=== PATIENT | female | born 1980 | race Caucasian/White ===

== ENCOUNTER 2021-04-22 09:54 | Emergency (ER) | payer OTHER ==
[~2021-04-22] VITALS: Ht 160 cm; Wt 68.0 kg
[~2021-04-22 09:54] MED LIST: COLACE 100 MG100 MG PO; NORCO 5-325 TA1 EACH PO; ONDANSETRON HCL4 M2 PO; TRAMADOL 50 MG50 MG PO; UNICOMPLEX M TA1 TA1; VITAMIN D1000 UNI1; ZANTAC 150MG T150 MG PO; ZOFRAN4 MG PO
[2021-04-22 10:09] VITALS: BP 110/72
[2021-04-22] MEDS ORDERED: NORCO5 PO (11:21)
== END 2021-04-22 11:22 | disposition home or self-care (01) ==
LOC: ER 09:54
DX: S92.911A Unspecified fracture of right toe(s), initial encounter for closed fracture (principal); M79.671 Pain in right foot; W50.1XXA Accidental kick by another person, initial encounter; Y93.89 Activity, other specified; Y92.89 Other specified places as the place of occurrence of the external cause; Y99.8 Other external cause status